=== PATIENT | male | born 1990 | race Caucasian/White ===

== ENCOUNTER 2022-07-15 11:17 | Emergency (ER) | payer BC, SELFPAY ==
--- NOTE | 2022-07-15 11:43 | ED.URI ---
HPI - URI/Sore Throat General Chief Complaint: Upper Respiratory Infection Stated Complaint: strep Time Seen by Provider: 07/15/22 11:43 Source: patient and RN notes reviewed History of Present Illness HPI Narrative: Patient here to care with complaints of sore throat cough, chest congestion drainage appears states he does typically had issues with the weather changing has been taking Zyrtec and Mucinex. Patient states her skin had strep 2 weeks ago. Denies any fever, nausea, vomiting. States the symptoms started yesterday. No other acute complaints. No acute distress noted. Patient aware of the plan of care. Some parts of this dictation were generated by voice recognition software and may contain typographical and/or grammatical inaccuracies. Related Data Allergies Allergy/AdvReac Type Severity Reaction Status Date / Time No Known Allergies Allergy Verified 07/15/22 12:01 Review of Systems Review of Systems: CONSTITUTIONAL: Denies fever, chills, or sweats. EYES: Denies visual changes, redness, or discharge. ENT: Ports of drainage, sore throat congestion CARDIOVASCULAR: Denies chest pain, palpitations, or edema. RESPIRATORY: Reports cough GASTROINTESTINAL: Denies abdominal pain, nausea, vomiting, or diarrhea. GENITOURINARY: Denies dysuria or hematuria. SKIN: Denies rash or itching. MUSCULOSKELETAL: Denies back pain, joint pain, or myalgia. NEUROLOGIC: Denies headache, numbness, or weakness. All other systems reviewed are negative, except as documented in HPI. PMFSH Comments At the time of my signature, I reviewed and agree with the nursing past medical, surgical, social, and family history. There is no relevant family history pertinent to the patient complaint. Exam Narrative: GENERAL: This is a well-nourished, well-developed patient, in no apparent distress. HEAD: normocephalic, atraumatic. EYES: PERRL. Sclera clear/white. Vision is grossly intact. EARS: External ears normal, auditory canals clear and without drainage, TMs normal without perforation. Hearing grossly intact. NOSE: External nose normal with no obvious nasal discharge, nares without redness, no rhinorrhea. THROAT: Mucous membranes moist, posterior pharynx clear. Mild postnasal drainage NECK: Neck supple CARDIOVASCULAR: Regular rate and rhythm RESPIRATORY: Clear to auscultation. Breath sounds equal bilaterally. No wheezes, rales, or rhonchi. SKIN: warm, intact with no suspicious lesions or rash, good texture and turgor. NEURO: awake, alert, and oriented to person, place and time. There were no obvious focal neurologic abnormalities. EXTREMITIES: No clubbing, cyanosis, or edema. Course Course Level of Care: Express Care Visit Vital Signs Vital signs: Vital Signs Temperature 97.4 F L 07/15/22 12:11 Pulse Rate 56 L 07/15/22 12:11 Respiratory Rate 16 07/15/22 12:11 Blood Pressure 130/85 07/15/22 12:11 Pulse Oximetry 100 07/15/22 12:11 Oxygen Delivery Room Air 07/15/22 12:11 Temperature 97.4 F L 07/15/22 12:11 Pulse Rate 56 L 07/15/22 12:11 Respiratory Rate 16 07/15/22 12:11 Blood Pressure 130/85 07/15/22 12:11 Pulse Oximetry 100 07/15/22 12:11 Oxygen Delivery Room Air 07/15/22 12:11 Reviewed MDM - URI/Sore Throat MDM Narrative Medical decision making narrative: Reviewed lab results with the patient. He is aware that strep swab was negative. Educated patient on culture and will call within 72 hours if culture is positive antibiotics are necessary. Advised patient to use Tylenol/ibuprofen as needed for pain. Continue daily antihistamine such as Zyrtec or Claritin. Complete the steroid regimen as prescribed. Be sure to eat and drink with medication. Follow-up with your PCP within 2-5 days or for worsening symptoms or failure to improve. Differential Diagnosis Differential diagnosis: Likely upper respiratory infection, croup, otitis media, sinusitis, viral infection, bronchitis, influenza and pharyngitis
[2022-07-15 12:11] VITALS: BP 130/85; PULSE 56; RESP 16; TEMP 36.3; O2SAT 100
== END 2022-07-15 12:24 | disposition home or self-care (01) ==
PROVIDERS: Emergency Provider Nurse Practitioner Family
DX: J06.9 Acute upper respiratory infection, unspecified (principal)
CPT/HCPCS: 87081; 87880; 99213; G0463